=== PATIENT | male | born 1945 | race Caucasian/White ===

== ENCOUNTER 2018-05-15 12:45 | Inpatient (IN) | payer MEDICARE, BC ==
[~2018-05-15] VITALS: Ht 175.3 cm; Wt 93.0 kg
--- NOTE | 2018-05-15 12:50 | NUR ---
SENT BY PMD FOR RLE POST OP WOUND EVAL. PT AAOX3, VSS. DENIES CP, SOB, DIZZINESS, N/V/D @ THIS TIME. DR. RIVERA @ BS FOR EVAL. NAD NOTED @ THIS TIME. WILL CONT TO MONITOR.
[2018-05-15] MEDS ORDERED: MEROPENEM 1 G in IV NS 0.9% 100 ML IV ONE (13:00)
[2018-05-15] MEDS ORDERED: GENTAMICIN 80 MG in IV D5W 50 ML IV ONE (13:00)
[2018-05-15 13:17] LABS: BASOPHILS % (AUTO) 0.5 % (0.0-2.0); EOSINOPHILS % (AUTO) 5.2 % (0.0-6.0); HEMATOCRIT 29 % (39-51); LYMPHOCYTES # (AUTO) 1.5 /CMM (0.8-4.8); LYMPHOCYTES % (AUTO) 19.6 % (20.0-44.0); MEAN CORPUSCULAR HEMOGLOBIN 28 PG (26.0-33.0); MEAN CORPUSCULAR HGB CONC 34 g/dl (31.0-36.0); MEAN CORPUSCULAR VOLUME 82 fL (80-96); MONOCYTES # (AUTO) 0.6 /CMM (0.1-1.30); MONOCYTES % (AUTO) 7.9 % (2.0-12.0); NEUTROPHILS # (AUTO) 5.2 /CMM (1.8-8.9); NEUTROPHILS % (AUTO) 66.8 % (43.0-81.0); PLATELET COUNT (AUTO) 377 /CMM (150-450); RDW COEFFICIENT OF VARIATION 15.3 (11.5-15.0); RED BLOOD CELL COUNT(AUTO) 3.57 MIL/uL (4.5-6.0); WHITE BLOOD COUNT (AUTO) 7.7 K/uL (4.3-11.0)
[2018-05-15 13:30] LABS: CALCIUM, SERUM 9.1 mg/dL (8.5-10.1); CARBON DIOXIDE 28 mmol/L (21-32); CHLORIDE 103 mmol/L (98-107); CREATININE 1.8 mg/dL (0.6-1.3); GLUCOSE 124 mg/dL (74-106); POTASSIUM 3.3 mmol/L (3.5-5.1); SODIUM SERUM 139 mmol/L (136-145); UREA NITROGEN, BLOOD 22 mg/dL (7-18)
--- NOTE | 2018-05-15 13:31 | NUR ---
BED 306-2
[2018-05-15] MEDS ORDERED: AMOX-430 PO (13:32)
[2018-05-15] MEDS ORDERED: HYDR-548 PO (13:32)
[2018-05-15] MEDS ORDERED: BLOO-668 IN (13:32)
[2018-05-15] MEDS ORDERED: CIPR2.5D EACHEYE (13:32)
[2018-05-15] MEDS ORDERED: ACID1TAB12 PO (13:32)
[2018-05-15] MEDS ORDERED: MULT-447 PO (13:32)
[2018-05-15] MEDS ORDERED: INSU100V7 SQ (13:32)
[2018-05-15] MEDS ORDERED: ASCO500T9 PO (13:32)
[2018-05-15] MEDS ORDERED: ASPI-1152 PO (13:32)
[2018-05-15] MEDS ORDERED: SULF1TAB48 PO (13:32)
[2018-05-15] MEDS ORDERED: SIME125T3 PO (13:32)
[2018-05-15] MEDS ORDERED: DIPH25CA83 PO (13:32)
[2018-05-15] MEDS ORDERED: TRIA80OI TP (13:32)
[2018-05-15] MEDS ORDERED: BUPR300T54 PO (13:32)
[2018-05-15] MEDS ORDERED: SENN-167 PO (13:32)
[2018-05-15] MEDS ORDERED: ACET-868 PO (13:32)
[2018-05-15] MEDS ORDERED: DOCU-141 PO (13:32)
[2018-05-15] MEDS ORDERED: OMEP40CA37 PO (13:32)
[2018-05-15] MEDS ORDERED: ZOLP10TA6 PO (13:32)
[2018-05-15] MEDS ORDERED: METO25TA20 PO (13:32)
[2018-05-15] MEDS ORDERED: INSU100V27 SQ (13:32)
[2018-05-15] MEDS ORDERED: AMLO10TA4 PO (13:32)
[2018-05-15] MEDS ORDERED: PRAV10TA40 PO (13:32)
[2018-05-15] MEDS ORDERED: DOXE25CA3 PO (13:32)
[2018-05-15 13:35] LABS: INR 0.95 (0.85-1.15)
[2018-05-15 13:38] LABS: ALANINE AMINOTRANSFERASE 17 U/L (12-78); ALKALINE PHOSPHATASE 104 U/L (46-116); ASPARTATE AMINOTRANSFERASE 19 U/L (15-37); BILIRUBIN,DIRECT 0.1 mg/dL (0.0-0.2); BILIRUBIN,TOTAL 0.2 mg/dL (0.2-1.0); TOTAL PROTEIN, SERUM 7.3 g/dL (6.4-8.2); TROPONIN I < 0.017 ng/mL (0.00-0.056)
[2018-05-15] MEDS ORDERED: IV NS 0.9% 1,000 ML IV PRN (13:56)
[2018-05-15] MEDS ORDERED: MAGNESIUM HYDROXIDE 30 ML UDC PO PRN (14:00)
[2018-05-15] MEDS ORDERED: DEXTROSE 50%-WATER 50 ML DISP.SYRIN IV PRN (14:00)
[2018-05-15] MEDS ORDERED: MAG HYDROX/AL HYDROX/SIMETH 30 ML UDC PO PRN (14:00)
[2018-05-15] MEDS ORDERED: Z GUARD REMEDY 2 OZ OINT TP PRN (14:00)
[2018-05-15] MEDS ORDERED: ZOLPIDEM TARTRATE 5 MG TABLET PO PRN (14:00)
[2018-05-15] MEDS ORDERED: ACETAMINOPHEN 325 MG TABLET PO PRN (14:00)
[2018-05-15] MEDS ORDERED: diphenhydrAMINE HCL 25 MG CAPSULE PO PRN (14:00)
--- NOTE | 2018-05-15 14:05 | NUR ---
PT STABLE, USING PORTABLE COMP DEVICE, NO ACUTE RESP DISTRESS @ THIS TIME & WILL CONT TO MONITOR.
[2018-05-15 14:45] VITALS: BP 150/78
--- NOTE | 2018-05-15 14:45 | NUR ---
RECEIVED PATIENT FROM ER VIA GURNEY. PATIENT IS A/OX4, ABLE TO MAKE NEEDS KNOWN. NO ACUTE DISTRESS, NO SOB, TOLERATING ROOM AIR- O2SAT 97%. DIAGNOSIS OF NON HEALING WOUND/ CELLULITIS. COMPLAINTS OF PAIN ON RIGHT LOWER LEG, WILL ADMINISTER PAIN MEDS ORDERED. IV SITE ON RIGHT AC GAUGE 20, INTACT AND PATENT. SKIN ASSESSMENT DONE, PHOTOS TAKEN, THOUGH PATIENT REFUSED TO HAVE PERINEAL AND SACRAL AREA CHECKED. ALL BELONGING NOTED ON CHECKLIST BY IRASEMA FLORES. ADMITTING ORDERS NOTED AND WILL CARRIED OUT. KEPT PATIENT SAFE AND COMFORTABLE. BED IN LOW/LOCKED POSITION, SIDERAILS UPX2, SEMIFOWLERS, CALL LIGHT IN REACH. WILL CONTINUE TO MONIOTR ACCORDINGLY.
[2018-05-15] MEDS: HYDROCODONE/APAP 10/325MG 1 EA TABLET PO PRN ×2 (14:49→20:24)
[2018-05-15] MEDS: SIMETHICONE 80 MG TAB.CHEW PO SCH ×2 (14:50→17:57)
[2018-05-15] MEDS ORDERED: FEE PK DOSING 1 MIN EA MC ONE (14:55)
[2018-05-15] MEDS ORDERED: POTASSIUM CHLORIDE 20 MEQ TAB.PRT.SR PO ONE (15:00)
[2018-05-15 15:30] VITALS: BP 157/79
[2018-05-15] MEDS ORDERED: GENTAMICIN IV ONE (16:00)
[2018-05-15] MEDS ORDERED: NS 0.9% IV ONE (16:00)
[2018-05-15] MEDS: INSULIN LISPRO/ASPART 100 UNIT/ML CARTRIDGE SQ SCH (17:00)
[2018-05-15] MEDS: CIPROFLOXACIN HCL 0.3% 5 ML BOTTLE EACHEYE SCH (17:56)
[2018-05-15] MEDS: DOCUSATE SODIUM 100 MG CAPSULE PO SCH (17:57)
[2018-05-15] MEDS: BLOOD SUGAR DIAGNOSTIC 1 EACH STRIP IN SCH ×2 (17:57→21:21)
[2018-05-15] MEDS: METOPROLOL TARTRATE 25 MG TABLET PO SCH (17:57)
--- NOTE | 2018-05-15 19:10 | NUR ---
RN CLOSING NOTES PATIENT IN STABLE CONDITION, SITTING ON THE CHAIR. ALL NEEDS ATTENDED AND PROVIDED. ALL DUE MEDS GIVEN ORDERED. KEPT PATIENT SAFE AND COMFORTABLE. CALL LIGHT IN REACH. ENDORSED TO NIGHT RN FOR LIGIA.
--- NOTE | 2018-05-15 19:17 | NUR ---
MS RN OPENING NOTES: RECEIVED PT ON ROOM AIR AND IS SITTING IN CHAIR ON THE TELEPHONE. NO S/S OF DISTRESS. PT IS A/OX4. PT HAS IV ON R AC #20G AND IS NOT CONNECTED TO IV FLUIDS AT THE MOMENT. EXPLAINED TO PT THAT HE WILL HAVE TO BE CONNECTED TO IV NS AT 75ML/HR . CALL LIGHT WITHIN PT'S REACH. PER AM NURSE, PT IS TO GO FOR MRI BETWEEN 2000-2030PM. BED KEPT IN LOW, LOCKED POSITION, AND SIDE RAILS X 2UP. WILL CONTINUE TO MONITOR PT.
--- NOTE | 2018-05-15 20:26 | NUR ---
MS RN NOTES: PT COMPLAINING OF RLE 8/10 PAIN. PT WAS ADMINISTERED NORCO 10. WILL CONTINUE TO MONITOR PT.
--- NOTE | 2018-05-15 20:28 | NUR ---
MS RN NOTES: SPOKE TO TECH FROM RADIOLOGY TO FOLLOW UP ON MRI. WAITING FOR APPROVAL FROM DR. NUNEZ. THEY ARE AWARE THAT IT IS STAT MRI.
[2018-05-15 20:41] VITALS: BP 164/83
--- NOTE | 2018-05-15 21:24 | NUR ---
MS RN NOTES: PT BROUGHT FOR MRI FOR RIGHT LOWER EXTREMITY.
[2018-05-15] MEDS ORDERED: DOXEPIN HCL (25 MG) 25 MG CAPSULE PO ONE (21:59)
--- NOTE | 2018-05-15 22:39 | NUR ---
MS RN NOTES: PT BACK FROM MRI.
[2018-05-15] MEDS: SENNOSIDES 8.6 MG TABLET PO SCH (22:49)
--- NOTE | 2018-05-15 22:49 | NUR ---
MS RN NOTES: PT WAS ADMINISTERED SENOKOT 8.6MG PO. PT SAID HE DOES NOT TAKE 2 TABS. HE NORMALLY ONLY TAKES ONE TABLET AT NIGHT.
[2018-05-15] MEDS: ZOLPIDEM TARTRATE 10 MG TABLET PO SCH (22:50)
[2018-05-15] MEDS: DOXEPIN HCL (25 MG) 25 MG CAPSULE PO SCH (22:50)
--- NOTE | 2018-05-15 22:50 | NUR ---
MS RN NOTES: PT REQUESTED FOR HIS AMBIEN 10MG TO BE ADMINISTERED AT A LATER TIME. HELD ON TO PILL IN A ZIPLOCK BAG FOR NOW.
--- NOTE | 2018-05-15 23:00 | NUR ---
MS RN NOTES: BLOOD SUGAR RECHECKED AND BLOOD SUGAR WAS 115. EXPLAINED TO PT THAT LANTUS IS NOT NECESSARY BUT HE IS INSISTING THAT IN THE MORNING IT IS NORMALLY HIGH. CHARGE NURSE AWARE. ONLY GAVE LANTUS 15 UNITS. TIFFANIE CRACKERS, ORANGE JUICES, AND MILK PROVIDED AT BEDSIDE. PT IS FULLY ORIENTED AND AWARE. WILL CONTINUE TO MONITOR PT.
[2018-05-15] MEDS: INSULIN GLARGINE, 100 UNIT/ML CARTRIDGE SQ SCH (23:03)
--- NOTE | 2018-05-16 00:38 | NUR ---
MS FOX NOTES: PT WAS ADMINISTERED HIS AMBIEN 10MG THAT HE ASKED TO TAKE AT A LATER TIME. WILL CONTINUE TO MONITOR PT. Addendum: 05/16/18 at 0116 by ANA CRISTINA MOTA RN PT SAYING THAT HIS PAIN IS TOLERABLE FOR NOW; OFFERED PAIN MEDICATION BUT DOES NOT WANT PAIN MEDICATION AT THIS TIME.
[2018-05-16 00:40] VITALS: BP 162/79
[2018-05-16] MEDS: MEROPENEM 500 MG in IV NS 0.9% 50 ML IV SCH ×2 (02:18→16:08)
[2018-05-16] MEDS: HYDROCODONE/APAP 10/325MG 1 EA TABLET PO PRN ×4 (02:22→19:03)
--- NOTE | 2018-05-16 02:24 | NUR ---
MS RN NOTES: PT COMPLAINING OF 7/10 RIGHT LOWER EXTREMITY PAIN. PT WAS ADMINISTERED NORCO 10 PO. WILL CONTINUE TO MONITOR PT.
--- NOTE | 2018-05-16 04:52 | NUR ---
MS RN NOTES: FAXED REQUEST TO [facility] TO OBTAIN MEDICAL RECORDS AT [phone].
[2018-05-16] MEDS: BLOOD SUGAR DIAGNOSTIC 1 EACH STRIP IN SCH ×4 (06:07→21:08)
[2018-05-16 06:13] VITALS: BP 151/81
[2018-05-16 06:32] LABS: ALBUMIN 2.5 g/dL (3.4-5.0); BILIRUBIN,TOTAL 0.2 mg/dL (0.2-1.0); CALCIUM, SERUM 8.7 mg/dL (8.5-10.1); CREATININE 1.7 mg/dL (0.6-1.3); MAGNESIUM 2.1 mg/dL (1.8-2.4); PHOSPHORUS 3.6 mg/dL (2.5-4.9); POTASSIUM 3.4 mmol/L (3.5-5.1); TOTAL PROTEIN, SERUM 6.1 g/dL (6.4-8.2)
--- NOTE | 2018-05-16 06:37 | NUR ---
MS RN NOTES: FAXED OVER MEDICAL REQUEST TO [facility] WITH PT'S SIGNATURE.
--- NOTE | 2018-05-16 06:38 | NUR ---
MS RN CLOSING NOTES: ALL NEEDS WERE ATTENDED AND ANTICIPATED FOR. PT KEPT CLEAN, DRY, AND COMFORTABLE. BLOOD SUGAR THIS AM WAS 83. NO INSULIN WAS ADMINISTERED. PT HAS IV AND IS BEING INFUSED WITH IV NS AT 75ML/HR. CALL LIGHT WITHIN PT'S REACH. BED KEPT IN LOW, LOCKED POSITION, AND SIDE RAILS X 2UP. DRESSING REMAINS IN PLACE ON RIGHT LOWER EXTREMITY. WILL ENDORSE TO AM NURSE FOR LIGIA.
[2018-05-16 08:00] VITALS: BP 169/75
[2018-05-16] MEDS ORDERED: POTASSIUM CHLORIDE 20 MEQ TAB.PRT.SR PO ONE (08:00)
[2018-05-16] MEDS ORDERED: GENTAMICIN 120 MG in IV D5W 100 ML IV SCH (08:00)
[2018-05-16 08:21] LABS: BASOPHILS % (AUTO) 0.5 % (0.0-2.0); EOSINOPHILS % (AUTO) 5.6 % (0.0-6.0); HEMATOCRIT 27 % (39-51); HEMOGLOBIN 8.8 g/dL (13.5-17.5); LYMPHOCYTES # (AUTO) 1.9 /CMM (0.8-4.8); LYMPHOCYTES % (AUTO) 31.3 % (20.0-44.0); MEAN CORPUSCULAR HEMOGLOBIN 28 PG (26.0-33.0); MEAN CORPUSCULAR HGB CONC 32 g/dl (31.0-36.0); MEAN CORPUSCULAR VOLUME 85 fL (80-96); MONOCYTES # (AUTO) 0.6 /CMM (0.1-1.30); MONOCYTES % (AUTO) 9.9 % (2.0-12.0); NEUTROPHILS # (AUTO) 3.3 /CMM (1.8-8.9); NEUTROPHILS % (AUTO) 52.7 % (43.0-81.0); PLATELET COUNT (AUTO) 305 /CMM (150-450); RDW COEFFICIENT OF VARIATION 16.5 (11.5-15.0); WHITE BLOOD COUNT (AUTO) 6.2 K/uL (4.3-11.0)
[2018-05-16] MEDS: ACIDOPHILUS/BULGARICUS 1 EACH TAB.CHEW PO SCH (08:42)
[2018-05-16] MEDS: ATORVASTATIN 10 MG TABLET PO SCH (08:42)
[2018-05-16] MEDS: BUPROPION XL 150 MG TAB.ER.24 PO SCH (08:42)
[2018-05-16] MEDS: ASCORBIC ACID 500 MG TABLET PO SCH (08:42)
[2018-05-16] MEDS: DOCUSATE SODIUM 100 MG CAPSULE PO SCH ×2 (08:42→17:38)
[2018-05-16] MEDS: AMLODIPINE BESYLATE 10 MG TABLET PO SCH (08:43)
[2018-05-16] MEDS: PANTOPRAZOLE 40 MG VIAL IV SCH (08:43)
[2018-05-16] MEDS: MULTIVIT, IRON, MIN NO. 8, FA 1 TAB PO SCH (08:43)
[2018-05-16] MEDS: METOPROLOL TARTRATE 25 MG TABLET PO SCH ×2 (08:47→16:17)
[2018-05-16] MEDS: SIMETHICONE 80 MG TAB.CHEW PO SCH ×3 (08:49→17:38)
[2018-05-16] MEDS: INSULIN LISPRO/ASPART 100 UNIT/ML CARTRIDGE SQ SCH ×3 (09:00→17:00)
[2018-05-16] MEDS: CIPROFLOXACIN HCL 0.3% 5 ML BOTTLE EACHEYE SCH ×3 (09:14→17:39)
--- NOTE | 2018-05-16 10:00 | NUR ---
attempt by rn to insert peripheral iv to be able to do contrast ct scan. Addendum: 05/16/18 at 1418 by JIGAR MUNIZ RN incorrect pt.
--- NOTE | 2018-05-16 10:15 | NUR ---
rn unsuccessful at iv insertion. Addendum: 05/16/18 at 1418 by JIGAR MUNIZ RN incorrect pt.
[2018-05-16] MEDS: IV NS 0.9% 1,000 ML IV PRN (10:53)
[2018-05-16] MEDS: ASPIRIN EC 81 MG TABLET.DR PO SCH (10:53)
--- NOTE | 2018-05-16 12:00 | NUR ---
dr. christos llanos called several times regarding need for midline iv. Addendum: 05/16/18 at 1418 by JIGAR MUNIZ RN incorrect pt.
--- NOTE | 2018-05-16 13:00 | NUR ---
dr. deluca in and wd. care done.
--- NOTE | 2018-05-16 13:00 | NUR ---
supervisor assembly room surendra attempting to reach midline rn. Addendum: 05/16/18 at 1419 by JIGAR MUNIZ RN incorrect pt.
--- NOTE | 2018-05-16 13:30 | NUR ---
dr. christos llanos in and orders given.
--- NOTE | 2018-05-16 13:40 | NUR ---
agricultural economist here and made 2 unsuccessful attemps at iv insertion. Addendum: 05/16/18 at 1419 by JIGAR MUNIZ RN incorrect pt.
--- NOTE | 2018-05-16 14:15 | NUR ---
still awaiting midline nurse to place iv. Addendum: 05/16/18 at 1419 by JIGAR MUNIZ RN incorrect pt.
--- NOTE | 2018-05-16 14:30 | NUR ---
ua sent as per orders.
[2018-05-16 16:00] VITALS: BP 176/91
[2018-05-16 16:18] LABS: BILIRUBIN,URINE NEGATIVE (NEGATIVE); BLOOD, URINE 2+ Ery/uL (NEGATIVE); COLOR,URINE YELLOW (YELLOW); KETONES,URINE NEGATIVE (NEGATIVE); LEUKOCYTE ESTERASE ,URINE NEGATIVE (NEGATIVE); NITRITE, URINE NEGATIVE (NEGATIVE); PROTEIN,URINE 2+ mg/dl (NEGATIVE); UGLUCOSE NEGATIVE (NEGATIVE); UROBILINOGEN,URINE 0.2 EU/dL (0.2)
[2018-05-16 16:23] LABS: URINE TOTAL PROTEIN 304.3 mg/dL (0-11.9)
--- NOTE | 2018-05-16 16:30 | NUR ---
bp elevated lopressor given early.
[2018-05-16 16:37] LABS: APPEARANCE,URINE CLEAR (CLEAR)
[2018-05-16 17:16] LABS: BACTERIA,URINE None seen /HPF (None Seen); SQUAMOUS EPITHELIAL CELL,UR Few /HPF (None Seen); WBC,URINE 0-2 /HPF (0-3)
[2018-05-16 17:43] LABS: EOSINOPHIL,URINE None Seen
--- NOTE | 2018-05-16 18:32 | NUR ---
humalog and sliding scale insulin held all day due to low bg levels.
--- NOTE | 2018-05-16 19:30 | NUR ---
MS RN OPENING NOTES PT RECEIVED SITTING UP IN BED AT LOWEST AND LOCKED POSITION WITH SIDE RAILS UP X2, NO S/S OF PAIN OR DISTRESS NOTED, A/O X3, RIGHT AC IV IS PATENT AND INTACT WITH IVF RUNNING ORDERED, BREATHING IS EVEN AND UNLABORED, SAFETY PRECAUTIONS IN PLACE, CALL LIGHT WITHIN REACH, WILL CONTINUE TO MONITOR AND ASSESS.
[2018-05-16 20:00] VITALS: BP 155/84
--- NOTE | 2018-05-16 20:00 | NUR ---
RN NOTES: PER REPORT, DR HOGUE CHANGED PT'S DRESSING TODAY, RLE DRESSING C/D/, ELEVATED ON . PT WILL HAVE RLE WOUND DEBRIDEMENT ON FRIDAY PER DR HOGUE NOTES, NPO FRIDAY NIGHT
[2018-05-16 20:03] VITALS: BP 155/84
--- NOTE | 2018-05-16 20:29 | NUR ---
RN NOTES: CALLED JOE AKERS TO ASK ABOUT RECORDS OF PT'S MICROBIOLOGY CULTURES, RN SPECIAL EQUIPMENT TECHNICIAN ASKED FOR FAXED NUMBER OF THE UNIT, STATED THEY WILL SEND US THE COPY VIA FAXED.
--- NOTE | 2018-05-16 20:30 | NUR ---
RN NOTES: DR ARVIZU PLACED NEW ORDER FOR ZYVOX PREMIX BAG IV, MED NOT AVAILABLE IN [facility], FAXED ORDER TO RN LOFT WORKER HEAD, PER RN LOFT WORKER HEAD SHE WILL BE THE ONE TO BRING THE MEDICATION TO THE UNIT
[2018-05-16] MEDS: SENNOSIDES 8.6 MG TABLET PO SCH (21:05)
[2018-05-16] MEDS: DOXEPIN HCL (25 MG) 25 MG CAPSULE PO SCH (21:05)
[2018-05-16] MEDS: ZOLPIDEM TARTRATE 10 MG TABLET PO SCH (21:06)
[2018-05-16] MEDS: INSULIN GLARGINE, 100 UNIT/ML CARTRIDGE SQ SCH (21:07)
[2018-05-16] MEDS: INSULIN REGULAR, HUMAN 100 UNIT/ML 3 ML VIAL SQ PRN (21:08)
--- NOTE | 2018-05-16 21:33 | NUR ---
RN NOTES: FOLLOW UP WITH RN SUP REGARDING ZYVOX MEDICATION ITS DUE/SCHEDULE FOR 2099, AND NOW ITS 2129,ASKED IF RN CAN SOFTWARE ENGINEER MOBILE THE [facility]IC[facility], PER RN UP SHE WILL BRING MEDICATION TO THE UNIT
[2018-05-16] MEDS ORDERED: LINEZOLID RTU BAG 300 ML IV ONE (21:49)
--- NOTE | 2018-05-16 22:19 | NUR ---
RN NOTES REGARDING ZYVOX: ZYVOX MEDICATION JUST DELIVERED BY RN SUP AT THIS TIME, OVERRIDE BY RN SUP, NEW ORDER FROM Diamond PE[facility], WILL ADMINISTER THE MEDICATION NOW
[2018-05-16] MEDS: LINEZOLID RTU BAG 600 MG in PREMIX 1 EA IV SCH (22:21)
[2018-05-17] MEDS ORDERED: IV D5/0.45 NACL 1,000 ML IV ONE
[2018-05-17] MEDS: MEROPENEM 500 MG in IV NS 0.9% 50 ML IV SCH ×2 (03:19→14:59)
[2018-05-17] MEDS: IV NS 0.9% 1,000 ML IV PRN ×2 (03:20→14:49)
--- NOTE | 2018-05-17 06:00 | NUR ---
MS RN CLOSING NOTES PT IN BED AT LOWEST AND LOCKED POSITION SLEEPING COMFORTABLY WITH SIDE RAILS UP X2, NO S/S OF PAIN OR DISTRESS NOTED, A/O3, MOST RECENT BLOOD GLUCOSE WAS 94 SO NO COVERAGE NEEDED, SAFETY PRECAUTIONS IN PLACE, ALL NEEDS ATTENDED TO, CALL LIGHT WITHIN REACH, WILL ENDORSE TO DAY SHIFT FOR LIGIA
[2018-05-17 06:51] LABS: ALBUMIN 2.8 g/dL (3.4-5.0); BILIRUBIN,TOTAL 0.2 mg/dL (0.2-1.0); CALCIUM, SERUM 8.8 mg/dL (8.5-10.1); CREATININE 1.5 mg/dL (0.6-1.3); PHOSPHORUS 3.1 mg/dL (2.5-4.9); POTASSIUM 3.9 mmol/L (3.5-5.1); TOTAL PROTEIN, SERUM 6.7 g/dL (6.4-8.2)
--- NOTE | 2018-05-17 07:00 | NUR ---
MSRN OPENING NOTES. PT RECEIVED A&0X3, TOLERATING ROOM AIR WITHOUT DISTRESS AND REPORTS 8/10 PAIN TO R LE. PT WITH IVC AT R AC INTACT AND OPERATIONAL WITH IVF PER RX. DRESSING CLEAN AND INTACT. PT BED IN LOWEST LOCKED POSITION WITH HANDRAILSX2 AND CALL ZAZUETA WITHIN REACH. PT BRIEFED ON TODAY'S POC AND IS WITHOUT CONCERN OR COMPLAIN AT THIS TIME.
[2018-05-17 08:00] VITALS: BP 167/84
[2018-05-17 08:12] LABS: BASOPHILS # (AUTO) 0.1 /CMM (0.0-0.2); BASOPHILS % (AUTO) 0.7 % (0.0-2.0); EOSINOPHILS % (AUTO) 5.5 % (0.0-6.0); HEMATOCRIT 27 % (39-51); HEMOGLOBIN 9.1 g/dL (13.5-17.5); LYMPHOCYTES # (AUTO) 1.9 /CMM (0.8-4.8); MEAN CORPUSCULAR HEMOGLOBIN 28 PG (26.0-33.0); MEAN CORPUSCULAR HGB CONC 34 g/dl (31.0-36.0); MEAN CORPUSCULAR VOLUME 83 fL (80-96); MONOCYTES # (AUTO) 0.7 /CMM (0.1-1.30); MONOCYTES % (AUTO) 9.5 % (2.0-12.0); NEUTROPHILS # (AUTO) 4.4 /CMM (1.8-8.9); NEUTROPHILS % (AUTO) 59.3 % (43.0-81.0); PLATELET COUNT (AUTO) 334 /CMM (150-450); RDW COEFFICIENT OF VARIATION 15.1 (11.5-15.0); RED BLOOD CELL COUNT(AUTO) 3.24 MIL/uL (4.5-6.0); WHITE BLOOD COUNT (AUTO) 7.5 K/uL (4.3-11.0)
[2018-05-17] MEDS: HYDROCODONE/APAP 10/325MG 1 EA TABLET PO PRN ×3 (08:36→18:53)
[2018-05-17] MEDS: DOCUSATE SODIUM 100 MG CAPSULE PO SCH ×2 (08:37→16:48)
[2018-05-17] MEDS: BUPROPION XL 150 MG TAB.ER.24 PO SCH (08:37)
[2018-05-17] MEDS: METOPROLOL TARTRATE 25 MG TABLET PO SCH ×2 (08:37→16:48)
[2018-05-17] MEDS: SIMETHICONE 80 MG TAB.CHEW PO SCH ×3 (08:37→16:48)
[2018-05-17] MEDS: ACIDOPHILUS/BULGARICUS 1 EACH TAB.CHEW PO SCH (08:37)
[2018-05-17] MEDS: ASCORBIC ACID 500 MG TABLET PO SCH (08:37)
[2018-05-17] MEDS: ATORVASTATIN 10 MG TABLET PO SCH (08:37)
[2018-05-17] MEDS: MULTIVIT, IRON, MIN NO. 8, FA 1 TAB PO SCH (08:37)
[2018-05-17] MEDS: AMLODIPINE BESYLATE 10 MG TABLET PO SCH (08:38)
[2018-05-17] MEDS: PANTOPRAZOLE 40 MG VIAL IV SCH (08:38)
[2018-05-17] MEDS: CIPROFLOXACIN HCL 0.3% 5 ML BOTTLE EACHEYE SCH ×3 (08:39→16:49)
[2018-05-17] MEDS: ASPIRIN EC 81 MG TABLET.DR PO SCH (08:47)
[2018-05-17] MEDS: LINEZOLID RTU BAG 600 MG in PREMIX 1 EA IV SCH (08:47)
[2018-05-17] MEDS: INSULIN LISPRO/ASPART 100 UNIT/ML CARTRIDGE SQ SCH ×3 (09:00→16:46)
[2018-05-17] MEDS: BLOOD SUGAR DIAGNOSTIC 1 EACH STRIP IN SCH ×4 (10:51→22:13)
--- NOTE | 2018-05-17 12:10 | NUR ---
MSRN. PT AGAIN REFUSING INSULIN COVERAGE. PT EDUCATED R/T BGL RNAGES AND IMPORTANCE OF COMPLIANCE. PT REFUSING.
--- NOTE | 2018-05-17 13:56 | NUR ---
MSRN. PT REQUEST FOR [facility]'S DOCUMENTS REVIEWED AND RETURN FAX NUMBER WAS INCORRECT. DOCUMENT CORRECTED AND RE FAXED.
[2018-05-17] MEDS: ONDANSETRON HCL/PF 4 MG/2 ML VIAL IVP PRN (14:07)
[2018-05-17 16:00] VITALS: BP 156/71
--- NOTE | 2018-05-17 16:00 | NUR ---
MSRN. CENTRAL SUPPLY PROVIDED WITH LIST OF DETAILS FOR WOUND VAC ETC TO TAKE TO OR IN AM.
[2018-05-17 17:20] LABS: CREATININE, URINE 74.7 MG/DL (30.0-125.0); URINE SODIUM, RANDOM 100 mmol/l (40-220)
[2018-05-17 17:23] LABS: APPEARANCE,URINE CLEAR (CLEAR); BILIRUBIN,URINE NEGATIVE (NEGATIVE); BLOOD, URINE 3+ Ery/uL (NEGATIVE); COLOR,URINE YELLOW (YELLOW); KETONES,URINE NEGATIVE (NEGATIVE); LEUKOCYTE ESTERASE ,URINE NEGATIVE (NEGATIVE); NITRITE, URINE NEGATIVE (NEGATIVE); PROTEIN,URINE 2+ mg/dl (NEGATIVE); UGLUCOSE NEGATIVE (NEGATIVE); UROBILINOGEN,URINE 0.2 EU/dL (0.2)
--- NOTE | 2018-05-17 17:45 | NUR ---
MSRN. PT AGAIN NON COMPLIANT WITH SCHEDULED INSULIN BUT ACCEPTED SLIDING SCALE. PT EDUCATED ON IMPORTANCE OF BGL REGULATION.
[2018-05-17] MEDS: INSULIN REGULAR, HUMAN 100 UNIT/ML 3 ML VIAL SQ PRN (18:06)
--- NOTE | 2018-05-17 18:33 | NUR ---
MSRN CLOSING NOTES. PT REMAINS A&0X3, TOLERATING ROOM AIR WITHOUT DISTRESS AND REPORTS [place] PAIN MANAGEMENT. PT WITH IVC AT R AC INTACT AND OPERATIONAL WITH IVF PER RX. NEW DRESSING CLEAN AND INTACT. UA SUBMITTED. PT BED IN LOWEST LOCKED POSITION WITH HANDRAILSX2 AND CALL ZAZUETA WITHIN REACH. PT BED IN LOWEST LOCKED POSITION WITH HANDRAILSX2 AND CALL ZAZUETA WITHIN REACH. ALL DAY NURSE DUTIES ATTENDED TO AND PT IS WITHOUT CONCERN OR COMPLAIN AT THIS TIME.
[2018-05-17 19:15] LABS: RBC,URINE 21-50 /HPF (0-2); WBC,URINE 0-2 /HPF (0-3)
[2018-05-17 19:16] LABS: BACTERIA,URINE Rare /HPF (None Seen); SQUAMOUS EPITHELIAL CELL,UR 0-2 /HPF (None Seen)
[2018-05-17 19:26] LABS: URINE TOTAL PROTEIN > 250.0 mg/dL (0-11.9)
[2018-05-17 19:38] LABS: EOSINOPHIL,URINE Rare
--- NOTE | 2018-05-17 19:40 | NUR ---
MS RN NOTE: PATIENT RESTING IN BED, NO ACUTE DISTRESS NOTED. BREATHING EVEN AND UNLABORED, NO SOB NOTED. IV TO RAC IN PLACE, INFUSING NS AT 100 ML/HR. DRESSING TO RLE IN PLACE, NO BLEEDING/ DRAINAGE NOTED. PATIENT TO BE NPO AFTER MIDNIGHT FOR SURGERY TOMORROW FOR RLE, WITH WOUND VAC PLACEMENT. BED LOCKED AND IN LOWEST POSITION, CALL LIGHT IN REACH, WILL CONTINUE TO MONITOR.
[2018-05-17 20:00] VITALS: BP 159/78
[2018-05-17] MEDS: INSULIN GLARGINE, 100 UNIT/ML CARTRIDGE SQ SCH (22:00)
[2018-05-17] MEDS: SENNOSIDES 8.6 MG TABLET PO SCH (22:13)
[2018-05-17] MEDS: DOXEPIN HCL (25 MG) 25 MG CAPSULE PO SCH (22:13)
[2018-05-17] MEDS: ZOLPIDEM TARTRATE 10 MG TABLET PO SCH (22:13)
--- NOTE | 2018-05-17 22:30 | NUR ---
MS RN NOTE: PATIENT BLOOD SUGAR LEVEL 223MG/DL, NO INSULIN GIVEN SINCE PATIENT WILL BE NPO FOR SURGERY TOMORROW. NO S/S OF HYPERGLYCEMIA NOTED. WILL CONTINUE TO MONITOR.
[2018-05-18] MEDS ORDERED: IV D5/0.45 NACL 1,000 ML IV ONE
--- NOTE | 2018-05-18 00:30 | NUR ---
MS RN NOTE: PATIENT NPO FOR SURGERY IN AT 1200, FOR RIGHT LOWER LEG DEBRIDEMENT, WITH POSSIBLE WOUND VAC. CONSENT AND CHECKLIST COMPLETED. INFORMED PATIENT THAT HE CAN NOT EAT OR DRINK, WILL CONTINUE TO MONITOR.
[2018-05-18] MEDS: MEROPENEM 500 MG in IV NS 0.9% 50 ML IV SCH ×3 (03:12→16:20)
--- NOTE | 2018-05-18 06:19 | NUR ---
MS RN NOTE: PATIENT RESTING IN BED, NO ACUTE DISTRESS NOTED. BREATHING EVEN AND UNLABORED, NO SOB NOTED. IV TO RAC IN PLACE, INFUSING D5 1/2 NS AT 75 ML/HR. DRESSING TO RLE IN PLACE. PATIENT NPO SINCE MIDNIGHT. NO S/S OF HYPER/HYPOGLYCEMIA NOTED. BED LOCKED AND IN LOWEST POSITION, CALL LIGHT IN REACH, WILL ENDORSE TO DAY NURSE TO CONTINUE WITH PLAN OF CARE. Addendum: 05/18/18 at 0728 by MANJULA WELLS RN PATIENT BLOOD SUGAR LEVEL 171 MG/DL, NO INSULIN GIVEN SINCE PATIENT STILL NPO FOR SURGERY. NO S/S OF HYPER/HYPOGLYCEMIA NOTED.
--- NOTE | 2018-05-18 07:30 | NUR ---
RN OPENING NOTES RECEIVED PT. PT IS STABLE AND SLEEPING IN BED. NO S/S OF RESP DISTRESS. C/O MILD PAIN 3/10, ABLE TO TOLERATE. PT SCHEDULED FOR SURGICAL DEBRIDEMENT RLE AT NOON, KEPT NPO SINCE MIDNIGHT. CONSENT FORM SIGNED AND PLACED IN CHART. SAFETY MEASURES IN PLACE, CALL LIGHT WITHIN REACH. WILL CONTINUE TO MONITOR.
[2018-05-18 08:00] VITALS: BP 164/80
[2018-05-18 08:04] LABS: CALCIUM, SERUM 8.7 mg/dL (8.5-10.1); CREATININE 1.4 mg/dL (0.6-1.3); POTASSIUM 4.2 mmol/L (3.5-5.1)
[2018-05-18 08:05] LABS: BASOPHILS % (AUTO) 0.9 % (0.0-2.0); EOSINOPHILS % (AUTO) 6.6 % (0.0-6.0); HEMATOCRIT 27 % (39-51); LYMPHOCYTES # (AUTO) 1.6 /CMM (0.8-4.8); LYMPHOCYTES % (AUTO) 29.6 % (20.0-44.0); MEAN CORPUSCULAR HEMOGLOBIN 28 PG (26.0-33.0); MEAN CORPUSCULAR HGB CONC 34 g/dl (31.0-36.0); MEAN CORPUSCULAR VOLUME 83 fL (80-96); MONOCYTES # (AUTO) 0.5 /CMM (0.1-1.30); MONOCYTES % (AUTO) 9.2 % (2.0-12.0); NEUTROPHILS # (AUTO) 2.9 /CMM (1.8-8.9); NEUTROPHILS % (AUTO) 53.7 % (43.0-81.0); PLATELET COUNT (AUTO) 296 /CMM (150-450); RDW COEFFICIENT OF VARIATION 15.2 (11.5-15.0); RED BLOOD CELL COUNT(AUTO) 3.22 MIL/uL (4.5-6.0); WHITE BLOOD COUNT (AUTO) 5.3 K/uL (4.3-11.0)
[2018-05-18] MEDS: BLOOD SUGAR DIAGNOSTIC 1 EACH STRIP IN SCH ×4 (08:13→21:47)
[2018-05-18] MEDS: SIMETHICONE 80 MG TAB.CHEW PO SCH ×3 (08:20→17:55)
[2018-05-18] MEDS: METOPROLOL TARTRATE 25 MG TABLET PO SCH ×2 (08:20→17:55)
[2018-05-18] MEDS: BUPROPION XL 150 MG TAB.ER.24 PO SCH (08:20)
[2018-05-18] MEDS: ATORVASTATIN 10 MG TABLET PO SCH (08:21)
[2018-05-18] MEDS: DOCUSATE SODIUM 100 MG CAPSULE PO SCH ×2 (08:21→17:56)
[2018-05-18] MEDS: MULTIVIT, IRON, MIN NO. 8, FA 1 TAB PO SCH (08:21)
[2018-05-18] MEDS: ASCORBIC ACID 500 MG TABLET PO SCH (08:21)
[2018-05-18] MEDS: PANTOPRAZOLE 40 MG VIAL IV SCH (08:21)
[2018-05-18] MEDS: ACIDOPHILUS/BULGARICUS 1 EACH TAB.CHEW PO SCH (08:21)
[2018-05-18] MEDS: AMLODIPINE BESYLATE 10 MG TABLET PO SCH (08:21)
[2018-05-18] MEDS: ASPIRIN EC 81 MG TABLET.DR PO SCH (08:21)
[2018-05-18] MEDS: CIPROFLOXACIN HCL 0.3% 5 ML BOTTLE EACHEYE SCH ×3 (08:30→17:55)
[2018-05-18] MEDS: INSULIN LISPRO/ASPART 100 UNIT/ML CARTRIDGE SQ SCH ×3 (08:30→17:00)
[2018-05-18 09:02] VITALS: BP 164/80
[2018-05-18] MEDS ORDERED: FENTANYL PF 250MCG/5ML AMPUL ONE (12:20)
[2018-05-18] MEDS ORDERED: SEVOFLURANE 250 ML BOTTLE IH ONE (12:39)
[2018-05-18] MEDS: ONDANSETRON HCL/PF 4 MG/2 ML VIAL IVP PRN (14:26)
[2018-05-18] MEDS: HYDROCODONE/APAP 10/325MG 1 EA TABLET PO PRN ×2 (14:26→19:37)
[2018-05-18 16:00] VITALS: BP 166/80
[2018-05-18] MEDS: INSULIN REGULAR, HUMAN 100 UNIT/ML 3 ML VIAL SQ PRN ×2 (18:07→21:48)
--- NOTE | 2018-05-18 18:33 | NUR ---
RN CLOSING NOTES PT IN BED RESTING. NO S/S OF RESP DISTRESS OR SOB. NO C/O PAIN. PT IS S/P WOUND DEBRIDEMENT PERFORMED IN OR. WOUND VAC APPLIED TO RLE BY SURGICAL STAFF. PT BP REMAINS HIGH FOLLOWING RETURN FROM OR. METOPROLOL GIVEN. SAFETY MEASURES IN PLACE, CALL LIGHT WITHIN REACH. WILL ENDORSE TO REGIONAL ENGINEER FOR LIGIA.
--- NOTE | 2018-05-18 19:00 | NUR ---
RN INITIAL NOTES PT IS AWAKE AND ALERT, SITTING ON BED SEMI-FOWLERS. IV ACCESS ON THE RIGHT AC 20G PATENT AND INTACT. WOUND VAC INTACT, PATENT, AND DRAINING. DRESSING ON THE RIGHT LOWER EXTREMITY IS INTACT, DRY, NO SIGNS OF BLEEDING. PT IN ROOM AIR, NO SIGNS OF LABORED BREATHING. SAFETY MEASURES IN PLACED, CALL LIGHT WITHIN REACH. WILL CONTINUE TO MONITOR AND ASSESS.
[2018-05-18 20:00] VITALS: BP 165/85
--- NOTE | 2018-05-18 21:26 | NUR ---
RN NOTES PT BLOOD SUGAR IS 237, PT ONLY WANTED LANTUS AND REFUSED INSULIN REGULAR (HUMULIN). EDUCATED PATIENTS ABOUT RISKS AND BENEFITS OF INSULIN COVERAGE. PT VERBALIZES UNDERSTANDING
[2018-05-18] MEDS: INSULIN GLARGINE, 100 UNIT/ML CARTRIDGE SQ SCH (21:46)
[2018-05-18] MEDS: ZOLPIDEM TARTRATE 10 MG TABLET PO SCH (21:47)
[2018-05-18] MEDS: DOXEPIN HCL (25 MG) 25 MG CAPSULE PO SCH (21:47)
[2018-05-18] MEDS: SENNOSIDES 8.6 MG TABLET PO SCH (21:48)
[2018-05-19] MEDS: IV NS 0.9% 1,000 ML IV PRN ×2 (06:15→18:06)
[2018-05-19] MEDS: BLOOD SUGAR DIAGNOSTIC 1 EACH STRIP IN SCH ×4 (06:19→21:12)
--- NOTE | 2018-05-19 06:20 | NUR ---
RN NOTES/ AM BLOOD SUGAR PT BLOOD SUGAR IS 95. WILL GIVE ORANGE JUICE. NO COVERAGE ADMINISTERED
--- NOTE | 2018-05-19 06:34 | NUR ---
RN CLOSING NOTES PT IS AWAKE AND ALERT, LAYING IN BED SEMI-FOWLERS. IV ACCESS ON THE RIGHT AC 20G PATENT AND INTACT. WOUND VAC INTACT, PATENT, AND DRAINING 50CC. DRESSING ON THE RIGHT LOWER EXTREMITY IS INTACT, DRY, NO SIGNS OF BLEEDING. PT IN O2 VIA NASAL CANNULA AT 3L, SOB ON EXERTION BUT O2 STAT AT 98%, ENCOURAGED PATIENT TO RELAX AND REST IN BETWEEN MOVEMENT. DENIES ANY PAIN. SAFETY MEASURES IN PLACED, CALL LIGHT WITHIN REACH. WILL ENDORSED CONTINUITY OF CARE TO THE ONCOMING NURSE.
[2018-05-19 07:06] LABS: CALCIUM, SERUM 8.9 mg/dL (8.5-10.1); CREATININE 1.3 mg/dL (0.6-1.3); POTASSIUM 3.9 mmol/L (3.5-5.1)
--- NOTE | 2018-05-19 07:30 | NUR ---
ms rn received on bed, awake,alert oriented x4,not in any form of disress, respirations even and unlabored,no sob noted, right foot wound vac w/ serousanguinous drainage at level of 30ml.all needs attended.
[2018-05-19 07:48] LABS: BASOPHILS % (AUTO) 0.8 % (0.0-2.0); EOSINOPHILS % (AUTO) 5.8 % (0.0-6.0); HEMATOCRIT 29 % (39-51); HEMOGLOBIN 10.1 g/dL (13.5-17.5); MEAN CORPUSCULAR HEMOGLOBIN 28 PG (26.0-33.0); MEAN CORPUSCULAR HGB CONC 35 g/dl (31.0-36.0); MEAN CORPUSCULAR VOLUME 82 fL (80-96); MONOCYTES % (AUTO) 9.1 % (2.0-12.0); NEUTROPHILS % (AUTO) 61.3 % (43.0-81.0); PLATELET COUNT (AUTO) 301 /CMM (150-450); RDW COEFFICIENT OF VARIATION 15.7 (11.5-15.0); RED BLOOD CELL COUNT(AUTO) 3.58 MIL/uL (4.5-6.0); WHITE BLOOD COUNT (AUTO) 6.3 K/uL (4.3-11.0)
[2018-05-19 08:00] VITALS: BP 159/73
--- NOTE | 2018-05-19 08:01 | NUR ---
WOUND CARE CONSULT WOUND CARE RECEIVED CONSULT FOR RLE WOUND. WOUND CARE WILL DEFER CONSULT AND ALL TREATMENT PLANS FOR SURGICAL TEAM WHO ARE CURRENTLY FOLLOWING. PATIENT WITH HAKAN AT 17, ALL PRESSURE ULCER PREVENTION MEASURES ARE NOTED TO BE IN PLACE. WILL SEE PRN.
[2018-05-19] MEDS: INSULIN LISPRO/ASPART 100 UNIT/ML CARTRIDGE SQ SCH ×3 (08:33→17:00)
--- NOTE | 2018-05-19 09:00 | NUR ---
ms stanford breakfast served,due meds given,tolerated well.
[2018-05-19] MEDS: DOCUSATE SODIUM 100 MG CAPSULE PO SCH ×2 (09:57→17:00)
[2018-05-19] MEDS: PANTOPRAZOLE 40 MG VIAL IV SCH (09:57)
[2018-05-19] MEDS: ATORVASTATIN 10 MG TABLET PO SCH (09:58)
[2018-05-19] MEDS: SIMETHICONE 80 MG TAB.CHEW PO SCH ×3 (09:58→17:54)
[2018-05-19] MEDS: MULTIVIT, IRON, MIN NO. 8, FA 1 TAB PO SCH (09:58)
[2018-05-19] MEDS: ASPIRIN EC 81 MG TABLET.DR PO SCH (09:58)
[2018-05-19] MEDS: ACIDOPHILUS/BULGARICUS 1 EACH TAB.CHEW PO SCH (09:58)
[2018-05-19] MEDS: ASCORBIC ACID 500 MG TABLET PO SCH (09:58)
[2018-05-19] MEDS: BUPROPION XL 150 MG TAB.ER.24 PO SCH (09:58)
[2018-05-19] MEDS: METOPROLOL TARTRATE 25 MG TABLET PO SCH ×2 (09:59→17:55)
[2018-05-19] MEDS: AMLODIPINE BESYLATE 10 MG TABLET PO SCH (09:59)
[2018-05-19] MEDS: HYDROCODONE/APAP 10/325MG 1 EA TABLET PO PRN ×2 (10:08→17:55)
[2018-05-19] MEDS: ONDANSETRON HCL/PF 4 MG/2 ML VIAL IVP PRN ×2 (10:09→17:54)
[2018-05-19] MEDS: CIPROFLOXACIN HCL 0.3% 5 ML BOTTLE EACHEYE SCH ×3 (10:11→18:13)
--- NOTE | 2018-05-19 10:58 | NUR ---
ms stanfordstaff development coordinator rn vac changed by marianne rowan rn, w/ 30ml output.
[2018-05-19 12:11] LABS: *SPE ALBUMIN 3.1 g/dL (2.9-4.4); *SPE ALPHA-1-GLOBULIN 0.3 g/dL (0.0-0.4); *SPE ALPHA-2-GLOBULIN 0.7 g/dL (0.4-1.0); *SPE BETA GLOBULIN 0.9 g/dL (0.7-1.3); *SPE GLOBULIN, TOTAL 3.1 g/dL (2.2-3.9); *SPE M-SPIKE Not Observed g/dL (Not Observed); *SPEGAMMA GLOBULIN 1.2 g/dL (0.4-1.8)
[2018-05-19 13:12] LABS: PTH, INTACT 37 pg/mL (15-65)
[2018-05-19] MEDS: MEROPENEM 500 MG in IV NS 0.9% 50 ML IV SCH (14:56)
[2018-05-19] MEDS: MORPHINE SULFATE INJ 4 MG/ML DISP.SYRIN IV PRN ×2 (15:06→20:32)
[2018-05-19 16:00] VITALS: BP 171/80
--- NOTE | 2018-05-19 19:00 | NUR ---
MS RN ON BED,NO DISTRESS NOTED,ALL NEEDS ATTENDED.
--- NOTE | 2018-05-19 19:05 | NUR ---
RN OPENING NOTES PT AWAKE AND ALERT. NO COMPLAINTS OF PAIN OR DISTRESS AT THIS TIME. PT IS ON 2L O2 VIA NASAL CANNULA. PT HAS A RIGHT AC #20 INTACT AND RUNNING NS @100ML/HR. WOUND VAC INTACT AREA CLEAN AND DRY, 50ML TOTAL COLLECTED AT THIS TIME. SAFETY PRECAUTIONS IN PLACE, BED IN LOWEST LOCKED POSITION, X2 SIDE RAILS UP, AND CALL LIGHT WITHIN REACH. WILL CONTINUE TO MONITOR.
[2018-05-19 20:00] VITALS: BP 159/82
[2018-05-19] MEDS: INSULIN GLARGINE, 100 UNIT/ML CARTRIDGE SQ SCH (21:12)
[2018-05-19] MEDS: ZOLPIDEM TARTRATE 10 MG TABLET PO SCH (21:12)
[2018-05-19] MEDS: SENNOSIDES 8.6 MG TABLET PO SCH (21:12)
[2018-05-19] MEDS: DOXEPIN HCL (25 MG) 25 MG CAPSULE PO SCH (21:12)
[2018-05-19] MEDS: INSULIN REGULAR, HUMAN 100 UNIT/ML 3 ML VIAL SQ PRN (21:13)
--- NOTE | 2018-05-19 21:19 | NUR ---
RN NOTES PT REFUSED LANTUS 30 UNITS AND SENOKOT. PT BLOOD SUGAR 128. EXPLAINED TO THE PATIENTS THE IMPORTANCE OF MEDICATION COMPLIANCE.
[2018-05-20] MEDS: MEROPENEM 500 MG in IV NS 0.9% 50 ML IV SCH ×2 (03:10→16:35)
[2018-05-20] MEDS: IV NS 0.9% 1,000 ML IV PRN (04:45)
[2018-05-20 06:31] LABS: CREATININE 1.2 mg/dL (0.6-1.3); POTASSIUM 3.8 mmol/L (3.5-5.1)
[2018-05-20] MEDS: BLOOD SUGAR DIAGNOSTIC 1 EACH STRIP IN SCH ×4 (06:40→21:53)
--- NOTE | 2018-05-20 06:57 | NUR ---
RN CLOSING NOTES PATIENT RESTING IN BED. ALL PATIENT NEEDS MET OVERNIGHT. PT IS ON 2L O2 VIA NASAL CANNULA. PT HAS A RIGHT AC #20 INTACT AND RUNNING NS @100ML/HR. WOUND VAC INTACT AREA CLEAN AND DRY, 50ML TOTAL COLLECTED. SAFETY PRECAUTIONS IN PLACE, BED IN LOWEST LOCKED POSITION, X2 SIDE RAILS UP, AND CALL LIGHT WITHIN REACH. WILL ENDORSE TO DAY SHIFT NURSE FOR CONTINUITY OF CARE.
--- NOTE | 2018-05-20 07:40 | NUR ---
MS RN RECEIVED ON BED, AWAKE,ALERT,ORIENTED X4,NOT IN ANY FORM OF DISTRESS, RESPIRATIONS EVEN AND UNLABORED,NO SOB NOTED, LUNGS ARE CLEAR,ABDOMEN SOFT,POSITIVE BOWEL SOUNDS, DENIES PAIN AT THIS TIME,WOUND VAC INTACT W/ SAGUINOUS DRAIN FORM RIGHT FOOT, ALL NEEDS ATTENDED.
[2018-05-20 08:00] VITALS: BP 165/85
--- NOTE | 2018-05-20 08:04 | NUR ---
COMMERCIAL SOLAR SALES CONSULTANT WOUND VAC DRESSING CHANGES TO BE DONE BY SURGICAL TEAM AT THIS TIME PER DPM DR HOGUE.
[2018-05-20] MEDS: INSULIN LISPRO/ASPART 100 UNIT/ML CARTRIDGE SQ SCH ×3 (09:00→17:00)
--- NOTE | 2018-05-20 09:50 | NUR ---
MS FOX BREAKFAST SERVED,DUE MEDS GIVEN TOLERATED WELL.
[2018-05-20] MEDS: MORPHINE SULFATE INJ 4 MG/ML DISP.SYRIN IV PRN ×3 (09:53→20:45)
[2018-05-20] MEDS: ACIDOPHILUS/BULGARICUS 1 EACH TAB.CHEW PO SCH (10:00)
[2018-05-20] MEDS: BUPROPION XL 150 MG TAB.ER.24 PO SCH (10:00)
[2018-05-20] MEDS: CIPROFLOXACIN HCL 0.3% 5 ML BOTTLE EACHEYE SCH ×3 (10:00→16:47)
[2018-05-20] MEDS: ASCORBIC ACID 500 MG TABLET PO SCH (10:00)
[2018-05-20] MEDS: PANTOPRAZOLE 40 MG VIAL IV SCH (10:00)
--- NOTE | 2018-05-20 10:00 | NUR ---
MS MANAGER SOCIAL TOMOGRAPHIC TECH CAME TO SEE PATIENT, WOUND VAC DRESSING CHANGE,ALL NEEDS ATTENDED.
[2018-05-20] MEDS: MULTIVIT, IRON, MIN NO. 8, FA 1 TAB PO SCH (10:01)
[2018-05-20] MEDS: DOCUSATE SODIUM 100 MG CAPSULE PO SCH ×2 (10:01→16:47)
[2018-05-20] MEDS: ASPIRIN EC 81 MG TABLET.DR PO SCH (10:01)
[2018-05-20] MEDS: SIMETHICONE 80 MG TAB.CHEW PO SCH ×3 (10:01→16:39)
[2018-05-20] MEDS: METOPROLOL TARTRATE 25 MG TABLET PO SCH ×2 (10:02→16:40)
[2018-05-20] MEDS: AMLODIPINE BESYLATE 10 MG TABLET PO SCH (10:02)
[2018-05-20] MEDS: ATORVASTATIN 10 MG TABLET PO SCH (10:04)
--- NOTE | 2018-05-20 10:15 | NUR ---
MS RN WAS SEEN BY DR. TIMMONS ,WAS KNOWN ABOUT WHEEZING, W/ ORDERS MADE AND CARRIED OUT.
--- NOTE | 2018-05-20 12:05 | NUR ---
MS RN BS - 180 - PATIENT REFUSED INSULIN COVERAGE AND ONE THAT'S DUE.
--- NOTE | 2018-05-20 13:30 | NUR ---
MS RN PATIENT WANTED TO HAVE ACCUCHECK DONE - BS - 187 - WANTED TO HAVE IT COVERED, 3 UNITS OF REGULAR INSULIN GIVEN SQ.
[2018-05-20] MEDS: HYDROCODONE/APAP 10/325MG 1 EA TABLET PO PRN ×2 (13:39→19:01)
[2018-05-20] MEDS: INSULIN REGULAR, HUMAN 100 UNIT/ML 3 ML VIAL SQ PRN ×2 (13:48→18:19)
[2018-05-20] MEDS: ONDANSETRON HCL/PF 4 MG/2 ML VIAL IVP PRN (13:56)
[2018-05-20 16:00] VITALS: BP 181/95
--- NOTE | 2018-05-20 17:30 | NUR ---
ms rn bs - 223 - 6 units of regular insulin given, patient always refusing the 7 units of humalog as scheduled.
--- NOTE | 2018-05-20 18:00 | NUR ---
ms rn on bed, no distress noted,all needs attended.
--- NOTE | 2018-05-20 19:25 | NUR ---
RN OPENING NOTES RECEIVED PT IN BED, ALERT AND ORIENTED X 4, IN NO ACUTE DISTRESS, WOUND VAC IN PLACE. PT WITH NO SOB, BREATHING EVEN AND UNLABORED, DENIES PAIN AT THIS TIME. ALL PATIENT'S NEEDS ATTENDED TO AT THIS TIME. PLACED CALL LIGHT WITHIN EASY REACH. WILL CONTINUE TO MONITOR PT.
[2018-05-20 20:00] VITALS: BP 164/85
[2018-05-20] MEDS: hydrALAZINE HCL 25 MG TABLET PO SCH (20:43)
[2018-05-20] MEDS: INSULIN GLARGINE, 100 UNIT/ML CARTRIDGE SQ SCH (21:53)
[2018-05-20] MEDS: DOXEPIN HCL (25 MG) 25 MG CAPSULE PO SCH (21:53)
[2018-05-20] MEDS: SENNOSIDES 8.6 MG TABLET PO SCH (21:53)
[2018-05-20] MEDS: ZOLPIDEM TARTRATE 10 MG TABLET PO SCH (21:53)
--- NOTE | 2018-05-20 22:00 | NUR ---
RN NOTES PATIENT REFUSED TO TAKE SENNOKOT SINCE HEB HAD A BM TODAY AND HE IS ALSO REFUSING LANTUS AND INSULIN COVERAGE PATIENT IS ANTICIPATING TO BE NPO AT MIDNIGHT IN PREPARATION FOR ANOTHER SURGERY. EXPLAINED TO PT STILL AWAITING ORDER FROM MD. WILL CONTINUE TO MONITOR.
[2018-05-21] MEDS: MEROPENEM 500 MG in IV NS 0.9% 50 ML IV SCH ×2 (03:27→15:34)
[2018-05-21] MEDS: hydrALAZINE HCL 25 MG TABLET PO SCH ×3 (05:00→21:56)
[2018-05-21 06:31] LABS: CREATININE 1.2 mg/dL (0.6-1.3); POTASSIUM 3.7 mmol/L (3.5-5.1)
--- NOTE | 2018-05-21 06:56 | NUR ---
RN CLOSING NOTES PATIENT IN BED, NO SOB NOTED THROUGHOUT THE SHIFT. ALL PATIENT'S NEEDS ATTENDED TO. NPO AT THIS TIME. PATIENT AWARE AND COMPLIANT. WOUND VAC INTACT AND IN PLACE. RIGHT LEG ELEVATED WITH A PILLOW. PLACED CALL LIGHT WITHIN EASY REACH. BED IN LOW POSITION AND LOCKED IN PLACE. CALLED JOE AKERS REGARDING PATIENT'S RECORD OF MICRO CS. SPOKE WITH RUDDY STINSON PLASTERER JOURNEYMAN AND AND PER SHANTELL WOUND CULTURE WAS NOT DONE WHILE PATIENT WAS ADMITTED UNDER THEIR CARE. ACCU-CHECK DONE, BS: 175 MG/DL. NO INSULIN GIVEN PT IS NPO AT THIS TIME. WILL ENDORSE TO AM SHIFT NURSE FOR CONTINUITY OF CARE.
--- NOTE | 2018-05-21 07:07 | NUR ---
RN NOTES RECEIVED CALL FROM DR. HOGUE CONFIRMING PATIENT'S DEBRIDEMENT TODAY AND THAT PATIENT IS NPO. PER MD, DR. TIMMONS WILL BE IN THE UNIT THIS MORNING TO CLEAR PATIENT FOR SURGERY TODAY. WILL ENDORSE TO AM SHIFT NURSE.
[2018-05-21] MEDS: BLOOD SUGAR DIAGNOSTIC 1 EACH STRIP IN SCH ×4 (07:09→23:58)
[2018-05-21] MEDS: BUMETANIDE INJ 0.25 MG/ML VIAL IV SCH (07:41)
--- NOTE | 2018-05-21 07:50 | NUR ---
RN OPENING NOTES RECEIVED PT. PT IS STABLE AND RESTING IN BED. A/OX4. NO S/S OF RESP DISTRESS OR SOB. NO C/O PAIN AT THIS TIME. PT HAS BEEN NPO SINCE MIDNIGHT FOR SECOND WOUND DEBRIDEMENT OF RLE TO BE PERFORMED AT [address] HAIDER. CONSENT FORMS SIGNED, SURGICAL CHECKLIST IN PROCESS. SAFETY MEASURES IN PLACE, CALL LIGHT WITHIN REACH, WILL CONTINUE TO MONITOR.
[2018-05-21] MEDS ORDERED: ANESTHESIA TRAY IN PYXIS 1 EA TRAY MC ONE (07:57)
[2018-05-21] MEDS: AMLODIPINE BESYLATE 10 MG TABLET PO SCH (08:07)
[2018-05-21] MEDS: ATORVASTATIN 10 MG TABLET PO SCH (08:07)
[2018-05-21 08:20] VITALS: BP 184/93
[2018-05-21] MEDS: METOPROLOL TARTRATE 25 MG TABLET PO SCH ×2 (08:47→17:10)
[2018-05-21] MEDS: CIPROFLOXACIN HCL 0.3% 5 ML BOTTLE EACHEYE SCH ×3 (09:00→17:22)
[2018-05-21] MEDS: ASPIRIN EC 81 MG TABLET.DR PO SCH (09:00)
[2018-05-21] MEDS: ACIDOPHILUS/BULGARICUS 1 EACH TAB.CHEW PO SCH (09:00)
[2018-05-21] MEDS: SIMETHICONE 80 MG TAB.CHEW PO SCH ×3 (09:00→17:11)
[2018-05-21] MEDS: BUPROPION XL 150 MG TAB.ER.24 PO SCH (09:00)
[2018-05-21] MEDS: DOCUSATE SODIUM 100 MG CAPSULE PO SCH ×2 (09:00→17:11)
[2018-05-21] MEDS: ASCORBIC ACID 500 MG TABLET PO SCH (09:00)
[2018-05-21] MEDS: PANTOPRAZOLE 40 MG VIAL IV SCH (09:00)
[2018-05-21] MEDS: MULTIVIT, IRON, MIN NO. 8, FA 1 TAB PO SCH (09:00)
[2018-05-21] MEDS ORDERED: BUMETANIDE INJ 0.25 MG/ML VIAL IV SCH (09:00)
[2018-05-21] MEDS: INSULIN LISPRO/ASPART 100 UNIT/ML CARTRIDGE SQ SCH ×3 (09:00→17:00)
--- NOTE | 2018-05-21 10:00 | NUR ---
RN NOTES PT PICKED UP BY SURGICAL STAFF FOR OPERATION, TO BE PERFORMED IN OR. WILL AWAIT RETURN FROM OR.
--- NOTE | 2018-05-21 12:05 | NUR ---
RN NOTES PT RETURNED FROM OR, S/P RLE WOUND DEBRIDEMENT. REPORTS PAIN LEVEL OF 6/10, TOLERABLE, IN RLE. POST-OP ORDERS RECEIVED, SIGNED AND PLACED IN CHART. WILL CONTINUE TO MONITOR.
[2018-05-21] MEDS: INSULIN REGULAR, HUMAN 100 UNIT/ML 3 ML VIAL SQ PRN ×3 (12:28→22:10)
[2018-05-21] MEDS: HYDROCODONE/APAP 10/325MG 1 EA TABLET PO PRN ×3 (13:01→21:53)
[2018-05-21 16:00] VITALS: BP 150/89
[2018-05-21] MEDS: ONDANSETRON HCL/PF 4 MG/2 ML VIAL IVP PRN (17:11)
--- NOTE | 2018-05-21 18:33 | NUR ---
RN CLOSING NOTES PT IN BED RESTING. NO S/S OF RESP DISTRESS OR SOB. NO C/O PAIN AT THIS TIME. PT IS S/P RLE WOUND DEBRIDEMENT. NEW IV ACCESS STARTED ON LFA 22G, CURRENTLY SL. PER MD ARVIZU, PT WILL REQUIRE 2-4 WKS OF IV ABX, MIDLINE WILL BE REQUIRED. SAFETY MEASURES IN PLACE, CALL LIGHT WITHIN REACH WILL ENDORSE TO STRAND GALVANIZER FOR LIGIA.
--- NOTE | 2018-05-21 19:00 | NUR ---
MS RN OPENING NOTES PT IN BED RESTING. NO S/S OF RESP DISTRESS OR SOB. NO C/O PAIN AT THIS TIME. PT IS S/P RLE WOUND DEBRIDEMENT. IV ACCESS ON LFA 22G. SAFETY MEASURES IN PLACE, CALL LIGHT WITHIN REACH, WILL CONTINUE TO MONITOR.
[2018-05-21 20:00] VITALS: BP 163/90
[2018-05-21] MEDS: DOXEPIN HCL (25 MG) 25 MG CAPSULE PO SCH (21:49)
[2018-05-21] MEDS: ZOLPIDEM TARTRATE 10 MG TABLET PO SCH (21:50)
[2018-05-21] MEDS: SENNOSIDES 8.6 MG TABLET PO SCH (22:00)
[2018-05-21] MEDS: INSULIN GLARGINE, 100 UNIT/ML CARTRIDGE SQ SCH (22:05)
[2018-05-21 23:59] VITALS: BP 148/76
[2018-05-22] MEDS: HYDROCODONE/APAP 10/325MG 1 EA TABLET PO PRN ×4 (00:04→20:37)
[2018-05-22] MEDS: MEROPENEM 500 MG in IV NS 0.9% 50 ML IV SCH (02:48)
[2018-05-22] MEDS: hydrALAZINE HCL 25 MG TABLET PO SCH ×3 (05:41→21:31)
[2018-05-22 06:17] LABS: BASOPHILS % (AUTO) 0.5 % (0.0-2.0); EOSINOPHILS % (AUTO) 8.7 % (0.0-6.0); HEMATOCRIT 30 % (39-51); HEMOGLOBIN 9.8 g/dL (13.5-17.5); LYMPHOCYTES # (AUTO) 2.3 /CMM (0.8-4.8); LYMPHOCYTES % (AUTO) 28.4 % (20.0-44.0); MEAN CORPUSCULAR HEMOGLOBIN 27 PG (26.0-33.0); MEAN CORPUSCULAR HGB CONC 33 g/dl (31.0-36.0); MEAN CORPUSCULAR VOLUME 84 fL (80-96); MONOCYTES # (AUTO) 0.8 /CMM (0.1-1.30); MONOCYTES % (AUTO) 9.6 % (2.0-12.0); NEUTROPHILS # (AUTO) 4.2 /CMM (1.8-8.9); NEUTROPHILS % (AUTO) 52.8 % (43.0-81.0); PLATELET COUNT (AUTO) 366 /CMM (150-450); RDW COEFFICIENT OF VARIATION 15.5 (11.5-15.0); RED BLOOD CELL COUNT(AUTO) 3.59 MIL/uL (4.5-6.0); WHITE BLOOD COUNT (AUTO) 7.9 K/uL (4.3-11.0)
[2018-05-22 06:32] LABS: CALCIUM, SERUM 9.1 mg/dL (8.5-10.1); CREATININE 1.4 mg/dL (0.6-1.3); MAGNESIUM 1.7 mg/dL (1.8-2.4); PHOSPHORUS 3.7 mg/dL (2.5-4.9); POTASSIUM 3.8 mmol/L (3.5-5.1)
[2018-05-22] MEDS: BLOOD SUGAR DIAGNOSTIC 1 EACH STRIP IN SCH ×4 (06:48→21:39)
[2018-05-22] MEDS: INSULIN REGULAR, HUMAN 100 UNIT/ML 3 ML VIAL SQ PRN ×2 (06:57→11:38)
--- NOTE | 2018-05-22 07:04 | NUR ---
MS RN CLOSING NOTES PT IN BED RESTING. NO S/S OF RESP DISTRESS,DENIES PAIN AT THIS TIME. PT IS S/P RLE WOUND DEBRIDEMENT, WOUND VAC 125 MMHG WITH NO OUTPUT. IV ACCESS ON LFA 22G. SAFETY MEASURES IN PLACE, CALL LIGHT WITHIN REACH. WILL ENDORSE TO NEXT SHIFT FOR LIGIA.
--- NOTE | 2018-05-22 07:08 | NUR ---
MS RN OPENING NOTE RECEIVED PATIENT IN BED. ALERT ORIENTED X4. ON ROOM AIR TOLERATING WELL. IN NO APPARENT DISTRESS OR DISCOMFORT AT THIS TIME. RESPIRATIONS EVEN AND UNLABORED. DENIES PAIN AND SOB. PATIENT WITH RIGHT LOWER LEG WOUND, WOUND VAC IN PLACE. DRESSING CLEAN AND INTACT. LEFT FOREARM 22G IVC SL. USES URINAL FOR ELIMINATION. ABLE TO AMBULATE TO THE BATHROOM. KEPT CLEAN AND COMFORTABLE. ABLE TO COMMUNICATE NEEDS. ALL NEEDS ATTENDED, SAFETY MEASURES IN PLACE, BED IN LOW LOCKED POSITION, SIDE RAILS UP X2, CALL LIGHT WITHIN EASY REACH. WILL CONTINUE TO MONITOR.
[2018-05-22 08:00] VITALS: BP 172/86
[2018-05-22 08:25] VITALS: BP 172/86
[2018-05-22] MEDS: PANTOPRAZOLE 40 MG VIAL IV SCH (08:40)
[2018-05-22] MEDS: BUMETANIDE INJ 0.25 MG/ML VIAL IV SCH (08:40)
[2018-05-22] MEDS: CIPROFLOXACIN HCL 0.3% 5 ML BOTTLE EACHEYE SCH ×3 (08:40→16:55)
[2018-05-22] MEDS: MULTIVIT, IRON, MIN NO. 8, FA 1 TAB PO SCH (08:41)
[2018-05-22] MEDS: ASPIRIN EC 81 MG TABLET.DR PO SCH (08:41)
[2018-05-22] MEDS: ATORVASTATIN 10 MG TABLET PO SCH (08:41)
[2018-05-22] MEDS: ACIDOPHILUS/BULGARICUS 1 EACH TAB.CHEW PO SCH (08:41)
[2018-05-22] MEDS: DOCUSATE SODIUM 100 MG CAPSULE PO SCH ×2 (08:41→16:49)
[2018-05-22] MEDS: SIMETHICONE 80 MG TAB.CHEW PO SCH ×3 (08:41→16:49)
[2018-05-22] MEDS: ASCORBIC ACID 500 MG TABLET PO SCH (08:41)
[2018-05-22] MEDS: BUPROPION XL 150 MG TAB.ER.24 PO SCH (08:42)
[2018-05-22] MEDS: METOPROLOL TARTRATE 25 MG TABLET PO SCH ×2 (08:42→16:49)
[2018-05-22] MEDS: AMLODIPINE BESYLATE 10 MG TABLET PO SCH (08:43)
[2018-05-22] MEDS: INSULIN LISPRO/ASPART 100 UNIT/ML CARTRIDGE SQ SCH ×4 (08:59→21:42)
--- NOTE | 2018-05-22 09:00 | NUR ---
PATIENT BLOOD GLUCOSE IS 212. NOVOLOG 7 UNITS IS SCHEDULED. PATIENT REFUSED TO HAVE 7 UNITES, INSTEAD WANTS ONLY 3 UNITS. RISKS AND BENEFITS EXPLAINED. EDUCATION PROVIDED REGARDING DISEASE PROCESS. ADMINISTERED 3 UNITS ONLY. WILL CONTINUE TO MONITOR.
[2018-05-22] MEDS: ONDANSETRON HCL/PF 4 MG/2 ML VIAL IVP PRN (09:48)
[2018-05-22] MEDS: Magnesium 1GM/D5W 100ML PREMIX 100 ML IV SCH ×2 (11:34→13:26)
--- NOTE | 2018-05-22 13:35 | NUR ---
PATIENT BLOOD GLUCOSE IS 171. NOVOLOG 7 UNITS IS SCHEDULED. PATIENT REQUESTED TO HAVE 3 UNITS INSTEAD OF 7. RISKS AND BENEFITS EXPLAINED. EDUCATION PROVIDED REGARDING DISEASE PROCESS. ADMINISTERED 3 UNITS ONLY. WILL CONTINUE TO MONITOR.
[2018-05-22] MEDS: CLINDAMYCIN 600 MG in IV NS 0.9% 50 ML IV SCH ×2 (14:45→20:37)
[2018-05-22 16:46] VITALS: BP 160/86
--- NOTE | 2018-05-22 17:00 | NUR ---
PATIENT REFUSES LINEN CHANGE AND PERSONAL CARE DESPITE NURSE'S SEVERAL ATTEMPTS.
[2018-05-22] MEDS ORDERED: PIPERACILLIN /TAZOBACTAM 3.375 G in IV D5W 50 ML IV SCH (18:00)
--- NOTE | 2018-05-22 18:00 | NUR ---
WOUND VAC SYSTEM PATIENT IS GOING TO BE DISCHARGED WITH WAS DELIVERED TO PATIENT AT THE HOSPITAL. ADDED TO BELONGING'S LIST PLACED IN PLATIENT'S ROOM. DISCUSSED WITH PATIENT
--- NOTE | 2018-05-22 18:33 | NUR ---
MS RN CLOSING NOTE PATIENT IN BED. ALERT ORIENTED X4. ON ROOM AIR TOLERATING WELL. IN NO APPARENT DISTRESS OR DISCOMFORT AT THIS TIME. RESPIRATIONS EVEN AND UNLABORED. DENIES PAIN AND SOB. PATIENT WITH RIGHT LOWER LEG WOUND, WOUND VAC IN PLACE DRAINING WITH ORDERED SETTINGS. DRESSING CLEAN AND INTACT. LEFT FOREARM 22G IVC SL, PATENT AND INTACT. USES URINAL FOR ELIMINATION. ABLE TO AMBULATE TO THE BATHROOM. KEPT COMFORTABLE, ALL ORDERS RENDERED. ABLE TO COMMUNICATE NEEDS. ALL NEEDS ATTENDED, SAFETY MEASURES IN PLACE, BED IN LOW LOCKED POSITION, SIDE RAILS UP X2, CALL LIGHT WITHIN EASY REACH. WILL ENDORSE TO PM NURSE FOR LIGIA.
--- NOTE | 2018-05-22 19:35 | NUR ---
MS RN OPENING NOTES PATIENT IN BED. ALERT ORIENTED X4. NO DISTRESS OR DISCOMFORT NOTED AT THIS TIME. RESPIRATIONS EVEN AND UNLABORED. DENIES PAIN. PATIENT WITH RIGHT LOWER LEG WOUND, WOUND VAC IN PLACE. DRESSING CLEAN AND INTACT.IV LEFT FOREARM 22G IVC SL INTACT AND PATENT. SAFETY PRECAUTIONS IN PLACE, CALL LIGHT WITHIN REACH.WILL CONTINUE TO MONITOR
[2018-05-22 20:00] VITALS: BP 153/72
[2018-05-22 20:16] VITALS: BP 153/72
[2018-05-22] MEDS: CEFEPIME 2 GM in IV D5W 100 ML IV SCH (20:37)
[2018-05-22] MEDS: DOXEPIN HCL (25 MG) 25 MG CAPSULE PO SCH (21:31)
[2018-05-22] MEDS: ZOLPIDEM TARTRATE 10 MG TABLET PO SCH (21:32)
[2018-05-22] MEDS: INSULIN GLARGINE, 100 UNIT/ML CARTRIDGE SQ SCH (21:41)
[2018-05-22] MEDS: SENNOSIDES 8.6 MG TABLET PO SCH (21:56)
[2018-05-23] MEDS: HYDROCODONE/APAP 10/325MG 1 EA TABLET PO PRN ×5 (00:53→21:46)
--- NOTE | 2018-05-23 01:10 | NUR ---
received patient's disclosure of health information from [facility] (85 pg). will endorse to day shift to notify . Addendum: 05/23/18 at 0131 by VERENICE VARELA RN INFORMATION FOR
[2018-05-23] MEDS: CLINDAMYCIN 600 MG in IV NS 0.9% 50 ML IV SCH (05:44)
[2018-05-23] MEDS: hydrALAZINE HCL 25 MG TABLET PO SCH ×3 (05:53→21:03)
[2018-05-23 06:02] LABS: CALCIUM, SERUM 8.8 mg/dL (8.5-10.1); CREATININE 1.4 mg/dL (0.6-1.3); MAGNESIUM 1.9 mg/dL (1.8-2.4); POTASSIUM 3.3 mmol/L (3.5-5.1)
[2018-05-23] MEDS: BLOOD SUGAR DIAGNOSTIC 1 EACH STRIP IN SCH ×4 (06:33→21:02)
[2018-05-23] MEDS: INSULIN REGULAR, HUMAN 100 UNIT/ML 3 ML VIAL SQ PRN (06:37)
--- NOTE | 2018-05-23 06:50 | NUR ---
MS RN CLOSING NOTE PATIENT IN BED. ALERT ORIENTED X4. ON ROOM AIR TOLERATING WELL. IN NO APPARENT DISTRESS OR DISCOMFORT AT THIS TIME. RESPIRATIONS EVEN AND UNLABORED. DENIES PAIN . PATIENT WITH RIGHT LOWER LEG WOUND AFTER DEBRIDEMENT, WOUND VAC IN PLACE DRAINING WITH ORDERED SETTINGS. DRESSING CLEAN AND INTACT. LEFT FOREARM 22G IVC SL, PATENT AND INTACT. ALL NEEDS ATTENDED, SAFETY MEASURES IN PLACE, BED IN LOW LOCKED POSITION, SIDE RAILS UP X2, CALL LIGHT WITHIN EASY REACH. WILL ENDORSE TO NEXT SHIFT FOR LIGIA.
[2018-05-23 08:00] VITALS: BP 139/74
[2018-05-23] MEDS: ONDANSETRON HCL/PF 4 MG/2 ML VIAL IVP PRN ×2 (08:18→17:28)
[2018-05-23] MEDS: BUMETANIDE INJ 0.25 MG/ML VIAL IV SCH (08:25)
[2018-05-23] MEDS: MULTIVIT, IRON, MIN NO. 8, FA 1 TAB PO SCH (09:00)
[2018-05-23] MEDS: DOCUSATE SODIUM 100 MG CAPSULE PO SCH ×2 (09:00→17:00)
[2018-05-23] MEDS: CIPROFLOXACIN HCL 0.3% 5 ML BOTTLE EACHEYE SCH ×3 (09:00→17:00)
[2018-05-23] MEDS: PANTOPRAZOLE 40 MG VIAL IV SCH (10:27)
[2018-05-23] MEDS: CEFEPIME 2 GM in IV D5W 100 ML IV SCH ×2 (10:42→21:30)
[2018-05-23] MEDS: ASPIRIN EC 81 MG TABLET.DR PO SCH (10:42)
[2018-05-23] MEDS: ATORVASTATIN 10 MG TABLET PO SCH (10:42)
[2018-05-23] MEDS: ACIDOPHILUS/BULGARICUS 1 EACH TAB.CHEW PO SCH (10:42)
[2018-05-23] MEDS: ASCORBIC ACID 500 MG TABLET PO SCH (10:46)
[2018-05-23] MEDS: BUPROPION XL 150 MG TAB.ER.24 PO SCH (10:46)
[2018-05-23] MEDS ORDERED: CLINDAMYCIN 600 MG in IV D5W 50 ML IV SCH ×2 (10:46→21:00)
[2018-05-23] MEDS: AMLODIPINE BESYLATE 10 MG TABLET PO SCH (10:48)
[2018-05-23] MEDS: METOPROLOL TARTRATE 25 MG TABLET PO SCH ×2 (10:49→17:18)
[2018-05-23] MEDS: SIMETHICONE 80 MG TAB.CHEW PO SCH ×3 (10:50→17:22)
[2018-05-23] MEDS ORDERED: POTASSIUM CHLORIDE 20 MEQ TAB.PRT.SR PO SCH (11:00)
[2018-05-23] MEDS: INSULIN LISPRO/ASPART 100 UNIT/ML CARTRIDGE SQ SCH ×3 (13:00→17:46)
[2018-05-23] MEDS: CLINDAMYCIN 600 MG in IV D5W 50 ML IV SCH ×2 (14:42→21:02)
[2018-05-23 16:00] VITALS: BP 143/69
--- NOTE | 2018-05-23 19:30 | NUR ---
RN NOTES RECEIVED PT. AWAKE ON BED, A/OX4, WOUND VAC IN PLACE , PICC LINE IN PLACE, DENIES PAIN AT THIS TIME, NO SOB, CALL LIGHT WITHIN REACH, [id number], CONTINUE TO MONITOR
--- NOTE | 2018-05-23 19:56 | NUR ---
RN OPENING NOTES RECEIVED PT. IN BED A&OX4. BREATHING UNLABORED ON OXYGEN AT 2L/MIN VIA NASAL CANNULA. NO S/S OF ACUTE DISTRESS. IV FLUIDS RUNNING TO KEEP VEIN OPEN. WOUND VAC RUNNING CONTINUOUS AT 125 MMHG. BED IS IN LOWEST, AND LOCKED POSITION. URINAL IS AT BEDSIDE. ALL NEEDS MET. WILL CONTINUE TO ASSESS. Addendum: 05/23/18 at 1999 by JESSENIA MORA RN INCORRECT TIME ABOVE OPENING NOTES FROM 0700
[2018-05-23 20:00] VITALS: BP 145/70
--- NOTE | 2018-05-23 20:00 | NUR ---
RN CLOSING NOTES PT. IS IN BED A&OX4. BREATHING UNLABORED ON ROOM AIR. NO S/S OF ACUTE DISTRESS. NEW PICC LINE ON LEFT UPPER LINE. WOUND VAC RUNNING CONTINUOUS AT 125 MMHG. BED IS IN LOWEST, AND LOCKED POSITION. URINAL IS AT BEDSIDE. ALL NEEDS MET. ENDORSED PLAN FOR DISCHARGE TOMORROW, AND PAIN MEDICATION PRESCRIPTION, AND WALKER NEEDED BEFORE DISCHARGE.
[2018-05-23] MEDS: SENNOSIDES 8.6 MG TABLET PO SCH ×2 (21:02→21:39)
[2018-05-23] MEDS: DOXEPIN HCL (25 MG) 25 MG CAPSULE PO SCH (21:11)
[2018-05-23] MEDS: INSULIN GLARGINE, 100 UNIT/ML CARTRIDGE SQ SCH (21:36)
--- NOTE | 2018-05-23 21:45 | NUR ---
RN NOTES COMPLAINED OF RIGHT FOOT PAIN- NORCO 10/325 MG PO GIVEN S ORDERED, V/S STABLE
[2018-05-23] MEDS: ZOLPIDEM TARTRATE 10 MG TABLET PO SCH (22:10)
[2018-05-24] MEDS: CLINDAMYCIN 600 MG in IV D5W 50 ML IV SCH ×2 (04:19→12:08)
[2018-05-24] MEDS: hydrALAZINE HCL 25 MG TABLET PO SCH ×2 (05:35→12:19)
--- NOTE | 2018-05-24 06:30 | NUR ---
RN NOTES BLOOD SUGAR-[id number], PT REFUSED INSULIN COVERAGE
--- NOTE | 2018-05-24 06:35 | NUR ---
RN NOTES SLEEPING BUT AROUSABLE, DENIES PAIN AT THIS TIME, NO SOB, MORNING CARE RENDERED, PICC LINE IN PLACE, WOUND VAC IN PLACE, PT. NEEDS ATTENDED
[2018-05-24] MEDS: BLOOD SUGAR DIAGNOSTIC 1 EACH STRIP IN SCH ×2 (06:40→12:09)
[2018-05-24 06:54] LABS: CALCIUM, SERUM 8.9 mg/dL (8.5-10.1); CREATININE 1.5 mg/dL (0.6-1.3); POTASSIUM 3.8 mmol/L (3.5-5.1)
--- NOTE | 2018-05-24 07:26 | NUR ---
MS RN OPENING NOTES RECEIVED PATIENT IN STABLE CONDITION. IN NO APPARENT DISTRESS. BEDSIDE RAILS ARE UPX2. BED IS LOCKED AND LOWERED. CALL LIGHT IS WITHIN REACH. IV LINE IS INTACT AND PATENT. WILL CONTINUE TO MONITOR PATIENT.
[2018-05-24 08:00] VITALS: BP 170/85
[2018-05-24] MEDS: BUMETANIDE INJ 0.25 MG/ML VIAL IV SCH (08:00)
[2018-05-24] MEDS: DOCUSATE SODIUM 100 MG CAPSULE PO SCH (09:00)
[2018-05-24] MEDS: INSULIN LISPRO/ASPART 100 UNIT/ML CARTRIDGE SQ SCH ×2 (09:00→12:17)
[2018-05-24] MEDS: ACIDOPHILUS/BULGARICUS 1 EACH TAB.CHEW PO SCH (09:50)
[2018-05-24] MEDS: CIPROFLOXACIN HCL 0.3% 5 ML BOTTLE EACHEYE SCH ×2 (09:50→12:12)
[2018-05-24] MEDS: SIMETHICONE 80 MG TAB.CHEW PO SCH ×2 (09:50→12:16)
[2018-05-24] MEDS: CEFEPIME 2 GM in IV D5W 100 ML IV SCH (09:50)
[2018-05-24] MEDS: METOPROLOL TARTRATE 25 MG TABLET PO SCH (09:50)
[2018-05-24] MEDS: PANTOPRAZOLE 40 MG VIAL IV SCH (09:50)
[2018-05-24] MEDS: ASPIRIN EC 81 MG TABLET.DR PO SCH (09:50)
[2018-05-24] MEDS: ATORVASTATIN 10 MG TABLET PO SCH (09:50)
[2018-05-24] MEDS: BUPROPION XL 150 MG TAB.ER.24 PO SCH (09:51)
[2018-05-24] MEDS: ASCORBIC ACID 500 MG TABLET PO SCH (09:51)
[2018-05-24] MEDS: AMLODIPINE BESYLATE 10 MG TABLET PO SCH (09:51)
[2018-05-24] MEDS: MULTIVIT, IRON, MIN NO. 8, FA 1 TAB PO SCH (09:51)
[2018-05-24] MEDS: ONDANSETRON HCL/PF 4 MG/2 ML VIAL IVP PRN (09:57)
[2018-05-24] MEDS: HYDROCODONE/APAP 10/325MG 1 EA TABLET PO PRN (09:57)
[2018-05-24 12:19] VITALS: BP 159/77
--- NOTE | 2018-05-24 16:11 | NUR ---
PATIENT DISCHARGED IN STABLE CONDITION. IN NO APPARENT DISTRESS. EXITCARE SIGNED AND PROVIDED TO THE PATIENT. PRESCRIPTIONS PROVIDED TO THE PATIENT. ALL NEEDS WERE MET. PICC LINE REMAINS IN PLACE FOR USE AT HOME WITH HOME [facility]ALTH [facility]. PATIENT PROVIDED WITH CRUTCHES. PATIENT HAS WOUND VAC FOR HOME USE. PATIENT ESCORTED OUT OF THE FACILITY VIA WHEELCHAIR WITH SANDRA DE AND SON.
== END 2018-05-24 16:20 | disposition home health service (06) | DRG 982 ==
LOC: ER 12:49 → MED 13:43
PROVIDERS: ADMIT Nurse Practitioner Acute Care; ATTEND Nurse Practitioner Acute Care
PROC: 2W1QX6Z Compression of Right Lower Leg using Pressure Dressing (ICD-10-PCS; 2018-05-18)
PROC: 0KBS0ZZ Excision of Right Lower Leg Muscle, Open Approach (ICD-10-PCS; principal; 2018-05-18 12:00)
PROC: 02HV33Z Insertion of Infusion Device into Superior Vena Cava, Percutaneous Approach (ICD-10-PCS; 2018-05-23)
PROC: B548ZZA Ultrasonography of Superior Vena Cava, Guidance (ICD-10-PCS; 2018-05-23)
DX: E10.69 Type 1 diabetes mellitus with other specified complication (principal); M86.9 Osteomyelitis, unspecified; L03.115 Cellulitis of right lower limb; E44.1 Mild protein-calorie malnutrition; L02.611 Cutaneous abscess of right foot; L97.919 Non-pressure chronic ulcer of unspecified part of right lower leg with unspecified severity; I25.10 Atherosclerotic heart disease of native coronary artery without angina pectoris; N17.0 Acute kidney failure with tubular necrosis; E10.65 Type 1 diabetes mellitus with hyperglycemia; E10.51 Type 1 diabetes mellitus with diabetic peripheral angiopathy without gangrene; E10.622 Type 1 diabetes mellitus with other skin ulcer; E78.5 Hyperlipidemia, unspecified; E87.6 Hypokalemia; K21.9 Gastro-esophageal reflux disease without esophagitis; Z95.1 Presence of aortocoronary bypass graft; Z91.19 Patient's noncompliance with other medical treatment and regimen; Z79.4 Long term (current) use of insulin; Z88.1 Allergy status to other antibiotic agents; F32.9 Major depressive disorder, single episode, unspecified; I13.10 Hypertensive heart and chronic kidney disease without heart failure, with stage 1 through stage 4 chronic kidney disease, or unspecified chronic kidney disease; F17.200 Nicotine dependence, unspecified, uncomplicated; I11.9 Hypertensive heart disease without heart failure; N18.9 Chronic kidney disease, unspecified; D63.8 Anemia in other chronic diseases classified elsewhere; E10.22 Type 1 diabetes mellitus with diabetic chronic kidney disease; E03.9 Hypothyroidism, unspecified; G47.00 Insomnia, unspecified
CPT/HCPCS: 36415; 71045-TC; 73718-TC; 80048-TC; 80053-TC; 80061-TC; 80076-TC; 81000-TC; 82550-TC; 82570-TC; 82962-TC; 83605-TC; 83735-TC; 83970; 84100-TC; 84155; 84155-TC; 84165; 84300-TC; 84484-TC; 85025-TC; 85652-TC; 85730-TC; 86850-TC; 87040-TC; 87070-TC; 87081-TC; 87086-TC; 87186-TC; 88305-TC; 88312-TC; A4216; A4606; A6253; A6402; A6403; C1751; C9113; J0692; J1580; J1815; J2020; J2185; J2270; J2405; J2543; J2704; J3010; J3475; J3490; J7030; J7050; J7060; Z7610

== ENCOUNTER 2018-05-28 13:20 | Outpatient (CLI) | payer MEDICARE, BC ==
[~2018-05-28 13:20] MED LIST: ACET-868 PO; ACID1TAB12 PO; AMLO10TA4 PO; ASCO500T9 PO; ASPI-1152 PO; BLOO-668 IN; BUPR300T54 PO; DIPH25CA83 PO; DOCU-141 PO; DOXE25CA3 PO; HYDR-4354 PO; INSU100V27 SQ; INSU100V7 SQ; METO25TA20 PO; MULT-447 PO; OMEP40CA37 PO; PRAV10TA40 PO; SENN-168 PO; SIME125T3 PO; TRIA80OI TP; ZOLP10TA6 PO
== END 2018-05-28 23:59 | disposition home health service (06) ==
LOC: WOU 13:20
PROVIDERS: ATTEND Podiatrist Foot & Ankle Surgery
DX: I87.311 Chronic venous hypertension (idiopathic) with ulcer of right lower extremity (principal); L97.213 Non-pressure chronic ulcer of right calf with necrosis of muscle; E10.51 Type 1 diabetes mellitus with diabetic peripheral angiopathy without gangrene; Z79.4 Long term (current) use of insulin
CPT/HCPCS: 11043; 11046 ×2; A6402; A6452; Z7610

== ENCOUNTER 2019-11-10 10:00 | Outpatient (CLI) | payer MEDICARE, BC ==
[~2019-11-10 10:00] MED LIST changes: +ASCO-352 PO; -ASCO500T9 PO; +BUPR-319 PO; -BUPR300T54 PO; +OMEP40CA13 PO; -OMEP40CA37 PO; -SENN-168 PO; +SENN-261 PO
== END 2019-11-10 23:59 | disposition home health service (06) ==
LOC: WOU 10:00
PROVIDERS: ATTEND Specialist
DX: Z01.818 Encounter for other preprocedural examination (principal); T86.821 Skin graft (allograft) (autograft) failure; I87.311 Chronic venous hypertension (idiopathic) with ulcer of right lower extremity; L97.812 Non-pressure chronic ulcer of other part of right lower leg with fat layer exposed; Z79.4 Long term (current) use of insulin; Z79.899 Other long term (current) drug therapy; E10.622 Type 1 diabetes mellitus with other skin ulcer; I25.10 Atherosclerotic heart disease of native coronary artery without angina pectoris
CPT/HCPCS: 87070; 87075; 87077; A6452; G0463